=== PATIENT | female | born 1935 | race Caucasian/White ===

== ENCOUNTER → 2017-06-29 | Outpatient (CLI) | payer OTHER, MEDICAID | LOC: FIMAGING 14:16 | PROVIDERS: ATTEND Internal Medicine | DX: H54.7 Unspecified visual loss (principal); R42 Dizziness and giddiness | CPT/HCPCS: 70450-PO ==

== ENCOUNTER 2017-11-24 13:46 | Emergency (ER) | payer OTHER, MEDICAID ==
--- NOTE | 2017-11-24 14:47 | EDPHY ---
H & P Time Seen by Provider: 11/24/17 14:31 HPI/ROS: CHIEF COMPLAINT: Right lower leg infection HISTORY OF PRESENT ILLNESS: Patient is a 82-year-old female presents to the emergency department with a right lower leg infection. Patient states she 1st had an infection noted 1 and half years ago. She has had intermittent episodes of cellulitis. Last Monday she had increased swelling and pain of her right lower extremity. She went to [facility]. She was diagnosed with cellulitis. She was started on Bactrim and Keflex. She felt as though her symptoms have been improving. However, today her home health aide thought that it was deeper in color. Patient also describes mild discomfort. No fevers or chills. Patient's neighbors saw her foot and brought her to the emergency department for evaluation. REVIEW OF SYSTEMS: My complete review of systems is negative except as mentioned in the HPI. Patient is legally blind Past Medical/Surgical History: Right lower extremity cellulitis, legally blind, neuropathy Social History: Patient lives at home alone. Smoking Status: Former smoker Physical Exam: 37.3, 104/90, 77, 90% on room air GENERAL: Well-appearing, in no acute distress, alert. HEENT: Eyes normal to inspection, normal pharynx, no signs of dehydration. NECK: [No thyromegaly, no lymphadenopathy, supple. RESPIRATORY: Clear to auscultation bilaterally, no rales, rhonchi or wheezing. CVS: Regular rate and rhythm, no rubs, murmurs, or gallops. ABDOMEN: Soft, nontender, nondistended, no organomegaly. BACK: Normal to inspection, no CVA tenderness. SKIN: Normal color, no rash, warm, dry. No pallor. EXTREMITIES: Patient has deep purple discoloration of her anteriorly right lower extremity. There is no significant bright erythema. Her foot does not feel warm compared to the left. There is no streaking up the leg. There is mild tenderness palpation over the discoloration. Homans sign or cords. NEURO/PSYCH: Alert and oriented x3, normal mood and affect, normal motor sensory exam. Constitutional: Initial Vital Signs Temperature (C) 37.3 C 11/24/17 13:55 Respiratory Rate 77 H 11/24/17 13:55 Blood Pressure 104/90 H 11/24/17 13:55 O2 Sat (%) 90 L 11/24/17 13:55 O2 Delivery Mode Room Air Allergies/Adverse Reactions: Penicillins Allergy (Intermediate, Verified 11/24/17 14:00) Rash Home Medications: Medication Instructions Recorded GABAPENTIN 01/05/10 Allopurinol 12/13/14 Escitalopram Oxalate 12/13/14 busPIRone 12/13/14 Methocarbamol 500 - 1,000 mg PO QID PRN #30 12/31/15 tablet Bactrim DS 11/24/17 CEPHALEXIN 11/24/17 Medical Decision Making ED Course/Re-evaluation: In the emergency department I discussed possible etiologies with the patient. Her friends were present. Patient is currently taking Bactrim and Keflex. She sugars me that she is taking his medications correctly. I demarcated the area of discoloration on the patient's right ankle. My plan is for the patient and her friends to monitor the area of discoloration. If it extends outside the marking they will come back to the emergency department. I discussed the potential of her need to return and the potential of underlying cellulitis worsening. However, I felt observation and continuation of her appropriate antibiotics is reasonable. 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 Differential Diagnosis: My differential includes but is not limited to cellulitis, MRSA, bacteremia, sepsis, DVT, arterial occlusion Departure - Departure Disposition: Home, Routine, Self-Care Clinical Impression: Cellulitis Qualifiers: Site of cellulitis: extremity Site of cellulitis of extremity: lower extremity Laterality: right Qualified Code(s): L03.115 - Cellulitis of right lower limb Condition: Good Instructions: Cellulitis (ED) Additional Instructions: I have demarcated the area of discoloration on your right lower extremity. If the discoloration extends outside the markings return to the emergency department. Take your antibiotics as directed. Return with increasing pain, swelling, fever, chills or any other concerns. Referrals: Soraida Srinivasan MD [Primary Care Provider] - 2-3 days, call for appt.
[2017-11-24 15:07] VITALS: BP 110/85
== END 2017-11-24 15:03 | disposition home or self-care (01) ==
LOC: CED 13:46
DX: L03.115 Cellulitis of right lower limb (principal); Z87.891 Personal history of nicotine dependence

== ENCOUNTER 2017-12-29 11:40 | Emergency (ER) | payer OTHER, MEDICAID ==
--- NOTE | 2017-12-29 11:58 | EDPHY ---
H & P Time Seen by Provider: 12/29/17 11:44 HPI/ROS: 82 yo F presents c/o right lower leg cellulitis with a wound that has been bothering her for months. She was seen at [facility] and started on Keflex and Bactrim in late October and then followed here November 25. She states she finished antibiotics but continues to have pain in that area and has been concerned about it. She has a appointment with Wound Care on January 03. No fever or chills. Review of systems As per HPI General no fever no chills no weakness HEENT no eye pain no eye discharge. No eye redness, no sore throat Respiratory no cough, no shortness of breath Cardiac no chest pain, no peripheral edema GI no abdominal pain, no diarrhea, no constipation, no nausea, no vomiting no flank pain, no hematuria, no dysuria Musculoskeletal no myalgias, no joint pain Heme no easy bruising, no easy bleeding Endo no polyuria, no polydipsia Skin pos rashes, no pruritus Neuro no syncope, no dizziness, no headaches Psych is no suicidal ideation, no homicidal ideation Source: Patient Exam Limitations: Physical impairment - Personal History Current Tetanus Diphtheria and Acellular Pertussis (TDAP): Yes Tetanus Vaccine Date: WITHIN 10 YRS - Medical/Surgical History Hx Asthma: No Hx Chronic Respiratory Disease: No Hx Diabetes: No Hx Cardiac Disease: No Hx Renal Disease: No Hx Cirrhosis: No Hx Alcoholism: No Hx HIV/AIDS: No Hx Splenectomy or Spleen Trauma: Yes Other PMH: LEGALLY BLIND, KNEE REPLACEMENTS, NEUROPATHY, NECK SURG, GALL BLADDER , Spleen rupture and SPLEENECTOMY - Family History Significant Family History: No pertinent family hx (The strain) - Social History Smoking Status: Former smoker Alcohol Use: None Drug Use: None - Physical Exam Exam: elderly F alert and oriented in nad, non toxic appearance, afebrile at,nc eomi, anicteric neck supple lungs cta bilat heart rrr abd nabs soft nt ext right lower extremity with area of chronic discoloration, with some erythema at distal third no increase warmth, no discharge, no crepitus, no fluctuance, 1 x 2 cm area with desquamtion(likely impending ulceration) no drainage, no pus, no crusting no lymphangitic streaks overall Extremity with normal color and normal temperature Dorsalis pedis present in right foot Constitutional: Initial Vital Signs Temperature (C) 36.9 C 12/29/17 11:46 Heart Rate 71 12/29/17 11:46 Respiratory Rate 18 12/29/17 11:46 Blood Pressure 164/87 H 12/29/17 11:46 O2 Sat (%) 93 12/29/17 11:46 O2 Delivery Mode Room Air Allergies/Adverse Reactions: Penicillins Allergy (Verified 12/29/17 11:49) Pt reports rash Home Medications: Medication Instructions Recorded GABAPENTIN 01/05/10 Allopurinol 12/13/14 busPIRone 12/13/14 Citalopram 12/29/17 Fluticasone Nasal 12/29/17 Levothyroxine 12/29/17 Lidocaine 4% 12/29/17 Loratadine 12/29/17 Pantoprazole Sodium 12/29/17 Sulfamethox/Tmp 800/160 mg 1 tab PO BID #14 tab 12/29/17 [Bactrim Ds] traMADol [Ultram 50 mg (*)] 50 mg PO Q8 7 Days #21 tab 12/29/17 Medical Decision Making - Diagnostics Imaging Results: Imaging Impressions Tibia/Fibula X-Ray 12/29/17 12:11 Impression: No acute abnormality. ED Course/Re-evaluation: Patient seen and evaluated for ongoing rash to right lower extremity . Treated for cellulitis on November 25. X-ray ordered no evidence of gas no soft tissue swelling, no fracture CBC within normal limits, no elevation of white blood cell count Lactate negative 0.7 BMP normal, no acidosis impression right lower extremity cellulitis, mild with possible area of impending ulceration no evidence for systemic illness or sepsis Plan bactrim bid x 7 days wound care follow up on January 03 Differential Diagnosis: differential diagnosis considered but Not limited to: Cellulitis, diabetic ulceration, necrotizing fasciitis, chronic venous stasis changes - Data Points Laboratory Results: Laboratory Results 12/29/17 12:20 12/29/17 12:20 12/29/17 12/29/17 12/29/17 12:20 12:20 12:20 WBC 7.63 10^3/uL 10^3/uL (3.80-9.50) RBC 3.93 10^6/uL L 10^6/uL (4.18-5.33) Hgb 13.2 g/dL g/dL (12.6-16.3) Hct 38.2 % % (38.0-47.0) MCV 97.2 fL fL (81.5-99.8) MCH 33.6 pg pg (27.9-34.1) MCHC 34.6 g/dL g/dL (32.4-36.7) RDW 13.7 % % (11.5-15.2) Plt Count 311 10^3/uL 10^3/uL (150-400) MPV 9.1 fL fL (8.7-11.7) Neut % (Auto) 50.8 % % (39.3-74.2) Lymph % (Auto) 36.4 % % (15.0-45.0) [place] % (Auto) 9.6 % % (4.5-13.0) Eos % (Auto) 2.1 % % (0.6-7.6) Baso % (Auto) 0.8 % % (0.3-1.7) Nucleat RBC Rel Count 0.0 % % (0.0-0.2) Absolute Neuts (auto) 3.88 10^3/uL 10^3/uL (1.70-6.50) Absolute Lymphs (auto) 2.78 10^3/uL 10^3/uL (1.00-3.00) Absolute Monos (auto) 0.73 10^3/uL 10^3/uL (0.30-0.80) Absolute Eos (auto) 0.16 10^3/uL 10^3/uL (0.03-0.40) Absolute Basos (auto) 0.06 10^3/uL 10^3/uL (0.02-0.10) Absolute Nucleated RBC 0.00 10^3/uL 10^3/uL (0-0.01) Immature Gran % 0.3 % % (0.0-1.1) Immature Gran # 0.02 10^3/uL 10^3/uL (0.00-0.10) VBG Lactic Acid 0.7 mmol/L mmol/L (0.7-2.1) Sodium 142 mEq/L mEq/L (135-145) Potassium 4.3 mEq/L mEq/L (3.3-5.0) Chloride 107 mEq/L mEq/L (97-110) Carbon Dioxide 25 mEq/l mEq/l (22-31) Anion Gap 10 mEq/L mEq/L (8-16) BUN 16 mg/dL mg/dL (7-23) Creatinine 0.9 mg/dL mg/dL (0.6-1.0) Estimated GFR 60 Glucose 81 mg/dL mg/dL (70-100) Calcium 9.5 mg/dL mg/dL (8.5-10.4) Medications Given: Discontinued Medications Acetaminophen (Tylenol) 1,000 mg PO EDNOW ONE Stop: 12/29/17 12:40 Last Admin: 12/29/17 12:41 Dose: 1,000 mg Departure - Departure Disposition: Home, Routine, Self-Care Clinical Impression: Wound of right lower extremity Condition: Good Instructions: Sulfamethoxazole/Trimethoprim (By mouth), Cellulitis (DC) Referrals: Soraida Srinivasan MD [Primary Care Provider] - As per Instructions Prescriptions: Sulfamethox/Tmp 800/160 mg [Bactrim Ds] 1 tab PO BID #14 tab traMADol [Ultram 50 mg (*)] 50 mg PO Q8 7 Days #21 tab
[2017-12-29 12:37] LABS: PLATELET COUNT 311 10^3/uL (150-400)
[2017-12-29] MEDS ORDERED: ACETAMINOPHEN 500 MG TAB PO ONE (12:39)
[2017-12-29 13:35] VITALS: BP 135/72
== END 2017-12-29 13:33 | disposition home or self-care (01) ==
LOC: CED 11:40
DX: T81.4XXA Infection following a procedure, initial encounter (principal); Z87.891 Personal history of nicotine dependence; Y82.8 Other medical devices associated with adverse incidents
CPT/HCPCS: 73590-PO; 80048-PO; 83605-PO; 85025-PO